=== PATIENT | female | born 1980 | race Caucasian/White ===

== ENCOUNTER 2017-06-23 09:01 | Inpatient (IN) | payer OTHER ==
[~2017-06-23] VITALS: Ht 165.1 cm; Wt 68.5 kg
[2017-06-23] MEDS ORDERED: LACTATED RINGERS 1,000 ML IV SCH ×2 (11:39→20:49)
[2017-06-23] MEDS ORDERED: OXYTOCIN 30U/ 0.9% NaCL 500ML 500 ML IV ONE (11:39)
[2017-06-23] MEDS ORDERED: NEWBORN KIT ONE ×2 (11:45→11:57)
[2017-06-23] MEDS ORDERED: LIDOCAINE 1%, 20ML ONE (11:45)
[2017-06-23] MEDS ORDERED: MISOPROSTOL 200 MCG TABLET ONE (11:46)
[2017-06-23] MEDS ORDERED: OXYTOCIN 30U/ 0.9% NaCL 500ML 500 ML ONE (11:46)
[2017-06-23] MEDS ORDERED: ONDANSETRON 2MG/ML, 2ML IVPush PRN (12:00)
[2017-06-23] MEDS ORDERED: FENTANYL PF 100 MCG/2ML IV PRN (12:00)
[2017-06-23] MEDS ORDERED: TERBUTALINE 1 MG/ML, 1ML IVPush PRN (12:00)
[2017-06-23] MEDS ORDERED: FENTANYL PF 100 MCG/2ML IVPush PRN (12:00)
[2017-06-23 12:37] LABS: HEMATOCRIT 39.1 % (34.6-47.8); HEMOGLOBIN 13.2 g/dL (11.7-16.4); WHITE BLOOD COUNT 13.5 x10^3/uL (3.4-10)
[2017-06-23] MEDS ORDERED: PLEASE ENTER HEIGHT AND WEIGHT MC SCH (13:00)
[2017-06-23] MEDS ORDERED: PLEASE ENTER ALLERGIES MC SCH ×2 (13:00)
[2017-06-23] MEDS ORDERED: FENTANYL PF 100 MCG/2ML ONE (18:54)
[2017-06-23] MEDS ORDERED: LIDOCAINE/PF 1.5%-EPI 1:200K, 30ML ONE ×2 (20:20→20:30)
[2017-06-23] MEDS ORDERED: FENTANYL/BUPIV./NS/PF 250 ML EPIDCONT ONE (20:20)
[2017-06-23] MEDS ORDERED: FENTANYL/BUPIV./NS/PF 250 ML EPIDCONT SCH (20:49)
[2017-06-23] MEDS ORDERED: LACTATED RINGERS 1,000 ML IVBOLUS PRN (21:00)
[2017-06-23] MEDS ORDERED: TERBUTALINE 1 MG/ML, 1ML ONE (21:41)
[2017-06-23] MEDS ORDERED: D5%-LACTATED RINGERS 1,000 ML IV SCH (23:49)
[2017-06-23] MEDS ORDERED: OXYTOCIN 30U/ 0.9% NaCL 500ML 500 ML IV PRN (23:49)
[2017-06-24] MEDS ORDERED: OXYTOCIN 30U/ 0.9% NaCL 500ML 500 ML IV SCH (03:55)
[2017-06-24] MEDS ORDERED: OXYcodone IR 5MG TABLET PO PRN (04:00)
[2017-06-24] MEDS ORDERED: DOCUSATE 100 MG CAPSULE PO PRN (04:00)
[2017-06-24] MEDS ORDERED: MISOPROSTOL 200 MCG TABLET PR PRN (04:00)
[2017-06-24] MEDS ORDERED: ONDANSETRON 2MG/ML, 2ML IV PRN (04:00)
[2017-06-24] MEDS ORDERED: OXYTOCIN 30U/ 0.9% NaCL 500ML 500 ML ONE (07:08)
[2017-06-24] MEDS: PRENATAL VIT/IRON/FA 1 EACH TABLET PO SCH (09:00)
[2017-06-24 09:30] VITALS: BP 105/62
[2017-06-24] MEDS: IBUPROFEN 600 MG TABLET PO PRN ×2 (12:01→17:53)
[2017-06-24 12:24] VITALS: BP 111/64
[2017-06-24 15:09] LABS: HEMATOCRIT 34.2 % (34.6-47.8); HEMOGLOBIN 11.6 g/dL (11.7-16.4); WHITE BLOOD COUNT 19.6 x10^3/uL (3.4-10)
[2017-06-24 16:00] VITALS: BP 107/72
[2017-06-24 20:00] VITALS: BP 100/58
[2017-06-24] MEDS: OXYcodone/APAP 5/325MG TABLET PO PRN (23:25)
[2017-06-25] VITALS: BP 104/62
[2017-06-25] MEDS: IBUPROFEN 600 MG TABLET PO PRN ×3 (02:12→13:44)
[2017-06-25] MEDS: OXYcodone/APAP 5/325MG TABLET PO PRN ×2 (07:08→13:22)
[2017-06-25 07:30] VITALS: BP 102/66
[2017-06-25] MEDS ORDERED: OXYC-302 PO (07:53)
[2017-06-25] MEDS ORDERED: IBUP-1222 PO (07:53)
[2017-06-25] MEDS: PRENATAL VIT/IRON/FA 1 EACH TABLET PO SCH (07:59)
== END 2017-06-25 13:56 | disposition home or self-care (01) | DRG 775 ==
LOC: LDOP 09:01 → LDIP 11:29 → 2NW 06-24 09:22
PROVIDERS: ADMIT Obstetrics & Gynecology; ATTEND Obstetrics & Gynecology
PROC: 10D07Z6 Extraction of Products of Conception, Vacuum, Via Natural or Artificial Opening (ICD-10-PCS; principal; 2017-06-24)
PROC: 0W8NXZZ Division of Female Perineum, External Approach (ICD-10-PCS; 2017-06-24)
PROC: 3E0S3CZ (ICD-10-PCS; 2017-06-24)
PROC: 00HU33Z Insertion of Infusion Device into Spinal Canal, Percutaneous Approach (ICD-10-PCS; 2017-06-24)
DX: O76 Abnormality in fetal heart rate and rhythm complicating labor and delivery (principal); O69.1XX0 Labor and delivery complicated by cord around neck, with compression, not applicable or unspecified; Z37.0 Single live birth; Z3A.41 41 weeks gestation of pregnancy
CPT/HCPCS: 36415; 82803; 85025; 86850; 86900; J3010; J3490; J2590; J7120; J7121

== ENCOUNTER 2019-09-12 11:12 | Inpatient (IN) | payer OTHER ==
[~2019-09-12] VITALS: Ht 165.1 cm; Wt 71.8 kg
[~2019-09-12 11:12] MED LIST: IBUP-1222 PO; OXYC-302 PO
[2019-09-12 11:23] VITALS: BP 133/80
[2019-09-12] MEDS ORDERED: LACTATED RINGERS 1,000 ML IV SCH (12:35)
[2019-09-12] MEDS ORDERED: OXYTOCIN 30U/ 0.9% NaCL 500ML 500 ML IV ONE (12:35)
[2019-09-12] MEDS ORDERED: D5%-LACTATED RINGERS 1,000 ML IV SCH (12:35)
[2019-09-12] MEDS ORDERED: FENTANYL PF 100 MCG/2ML IVPush PRN (13:00)
[2019-09-12] MEDS ORDERED: ONDANSETRON 2MG/ML, 2ML IVPush PRN (13:00)
[2019-09-12] MEDS ORDERED: TERBUTALINE 1 MG/ML, 1ML IVPush PRN (13:00)
[2019-09-12] MEDS ORDERED: TERBUTALINE 1 MG/ML, 1ML SQ PRN (13:00)
[2019-09-12] MEDS ORDERED: SODIUM CHLORIDE FLUSH 10ML SYR IVF PRN (13:00)
[2019-09-12] MEDS ORDERED: FENTANYL PF 100 MCG/2ML IV PRN (13:00)
[2019-09-12 13:07] LABS: BASOPHILS # (AUTO) 0.02 x10^3/uL (0-0.1); BASOPHILS % (AUTO) 0 % (0-1); EOSINOPHILS # (AUTO) 0.02 x10^3/uL (0-0.4); EOSINOPHILS % (AUTO) 0 % (1-7); LYMPHOCYTES # (AUTO) 1.73 x10^3/uL (1-3.4); LYMPHOCYTES % (AUTO) 19 % (22-44); MD NO; MEAN CORPUSCULAR HEMOGLOBIN 30.3 pg (27.0-34.8); MEAN CORPUSCULAR VOLUME 91.9 fL (80-100); MEAN PLATELET VOLUME 9.1 fL (7.4-10.4); MONOCYTES # (AUTO) 0.37 x10^3/uL (0.2-0.8); MONOCYTES % (AUTO) 4 % (2-9); NEUTROPHILS # (AUTO) 7.16 x10^3/uL (1.8-6.8); NEUTROPHILS % (AUTO) 77 % (42-75); PLATELET COUNT 186 x10^3/uL (130-400); RED CELL DISTRIBUTION WIDTH 15.2 % (9.6-15.2)
[2019-09-12] MEDS ORDERED: OXYTOCIN 30U/ 0.9% NaCL 500ML 500 ML ONE ×2 (15:19→22:24)
[2019-09-12] MEDS ORDERED: LIDOCAINE 1%, 20ML ONE (15:19)
[2019-09-12] MEDS ORDERED: MISOPROSTOL 200 MCG TABLET ONE (15:19)
[2019-09-12] MEDS ORDERED: NEWBORN KIT ONE (15:19)
[2019-09-12] MEDS ORDERED: CALCIUM CARBONATE 500 MG TAB.CHEW ONE (20:48)
[2019-09-12] MEDS ORDERED: CALCIUM CARBONATE 500 MG TAB.CHEW PO PRN (21:00)
[2019-09-12] MEDS ORDERED: IBUPROFEN 600 MG TABLET ONE (22:24)
[2019-09-12] MEDS: IBUPROFEN 600 MG TABLET PO PRN (22:26)
[2019-09-12] MEDS ORDERED: SIMETHICONE 80 MG CHEW TAB PO PRN (22:30)
[2019-09-12] MEDS ORDERED: METOCLOPRAMIDE 5 MG/ML, 2ML IV PRN (22:30)
[2019-09-12] MEDS ORDERED: ACETAMINOPHEN 325 MG TABLET PO PRN (22:30)
[2019-09-12] MEDS ORDERED: IBUPROFEN 800 MG TABLET PO PRN (22:30)
[2019-09-12] MEDS ORDERED: METHYLERGONOVINE 0.2 MG/ML IM PRN (22:30)
[2019-09-12] MEDS ORDERED: ONDANSETRON 2MG/ML, 2ML IV PRN (22:30)
[2019-09-12] MEDS ORDERED: MISOPROSTOL 200 MCG TABLET PR PRN (22:30)
[2019-09-12] MEDS ORDERED: CARBOPROST TROMETHAMINE 250 MCG/ML, 1ML IM PRN (22:30)
[2019-09-12] MEDS ORDERED: OXYcodone/APAP 5/325MG TABLET PO PRN ×2 (22:30)
[2019-09-13 00:20] VITALS: BP 122/71
[2019-09-13] MEDS: OXYTOCIN 30U/ 0.9% NaCL 500ML 500 ML IV SCH ×2 (00:38→08:20)
[2019-09-13 04:15] VITALS: BP 106/66
[2019-09-13 06:30] LABS: BASOPHILS # (AUTO) 0.03 x10^3/uL (0-0.1); BASOPHILS % (AUTO) 0 % (0-1); EOSINOPHILS # (AUTO) 0.06 x10^3/uL (0-0.4); EOSINOPHILS % (AUTO) 0 % (1-7); LYMPHOCYTES # (AUTO) 2.18 x10^3/uL (1-3.4); LYMPHOCYTES % (AUTO) 17 % (22-44); MD NO; MEAN CORPUSCULAR HEMOGLOBIN 29.9 pg (27.0-34.8); MEAN CORPUSCULAR HGB CONC 32.6 g/dL (32.4-35.8); MEAN CORPUSCULAR VOLUME 91.8 fL (80-100); MEAN PLATELET VOLUME 9.1 fL (7.4-10.4); MONOCYTES # (AUTO) 0.85 x10^3/uL (0.2-0.8); MONOCYTES % (AUTO) 7 % (2-9); NEUTROPHILS # (AUTO) 9.64 x10^3/uL (1.8-6.8); NEUTROPHILS % (AUTO) 76 % (42-75); PLATELET COUNT 173 x10^3/uL (130-400); RED BLOOD COUNT 3.65 x10^6/uL (3.82-5.3)
[2019-09-13 08:00] VITALS: BP 125/78
[2019-09-13] MEDS: DOCUSATE 100 MG CAPSULE PO PRN ×2 (08:43→19:45)
[2019-09-13] MEDS: PRENATAL VIT/IRON/FA 1 EACH TABLET PO SCH (08:43)
[2019-09-13] MEDS: IBUPROFEN 600 MG TABLET PO PRN (19:45)
[2019-09-13 20:10] VITALS: BP 95/55
[2019-09-14] MEDS: DOCUSATE 100 MG CAPSULE PO PRN (07:40)
[2019-09-14] MEDS: PRENATAL VIT/IRON/FA 1 EACH TABLET PO SCH (07:40)
[2019-09-14] MEDS: IBUPROFEN 600 MG TABLET PO PRN ×2 (07:42→14:16)
[2019-09-14 08:00] VITALS: BP 110/60
[2019-09-14] MEDS ORDERED: IBUP-1222 PO (14:29)
== END 2019-09-14 16:50 | disposition home or self-care (01) | DRG 807 ==
LOC: LDOP 11:12 → LDIP 12:36 → 2NW 09-13
PROVIDERS: ADMIT Obstetrics & Gynecology; ATTEND Obstetrics & Gynecology
PROC: 10E0XZZ Delivery of Products of Conception, External Approach (ICD-10-PCS; principal; 2019-09-12)
PROC: 10907ZC Drainage of Amniotic Fluid, Therapeutic from Products of Conception, Via Natural or Artificial Opening (ICD-10-PCS; 2019-09-12)
DX: O80 Encounter for full-term uncomplicated delivery (principal); Z37.0 Single live birth; Z3A.41 41 weeks gestation of pregnancy; Z88.5 Allergy status to narcotic agent
CPT/HCPCS: 36415; 85025; 86850; 86900; G0378; J2590; J7120